=== PATIENT | female | born 1960 | race Caucasian/White ===

== ENCOUNTER 2016-08-29 16:26 | Emergency (ER) | payer OTHER ==
[~2016-08-29] VITALS: Ht 157.5 cm; Wt 66.7 kg
[~2016-08-29 16:26] MED LIST: ALLOPURINOL; ALLOPURINOL300 MG PO; BUPROBAN150 MG PO; BUPROPION; COMPAZINE5 MG PO; FLOMAX0.4 MG PO; HYDROCODON-ACE1 EAC7 PO; IRON325 MG PO; KEFLEX500 MG PO; NORVASC5 MG PO; PERCOCET 5/31 TABLET PO; ZOFRAN4 MG PO; ZOLPIDEM TARTRAT5 MG PO; ZOLPIDEM TARTRATE
[2016-08-29 17:35] LABS: HEMATOCRIT 40.4 % (36.0-46.0); MCH 32.1 PG (29.0-34.0); MCHC 34.7 G/DL (30.0-36.0); MCV 92.7 FL (83-99); MEAN PLAT.VOLUME 10.3 uM^3 (9.5-12.4); PLATELET COUNT 244 K/uL (156-360); RBC DIS.WIDTH-CV 12.8 % (11.8-14.6); RBC DIS.WIDTH-SD 41.9 % (39-53); RED BLOOD COUNT 4.36 M/uL (3.80-5.20); WHITE BLOOD COUNT 7.2 K/uL (4.1-10.2)
[2016-08-29 17:47] LABS: CHLORIDE 107 mEq/L (99-109); POTASSIUM 3.7 mEq/L (3.7-5.4); SODIUM 141 mEq/L (136-147)
[2016-08-29 17:49] LABS: GLUCOSE 91 mg/dL (70-99)
[2016-08-29 17:50] LABS: ANION GAP 11 MEQ/L (2-14)
[2016-08-29 17:52] LABS: GFR ESTIMATE (CALCULATED) > 59 mL/min/
[2016-08-29 17:53] LABS: UREA NITROGEN (BUN) 11 mg/dL (9-23)
[2016-08-29 19:38] LABS: D-DIMER ELISA 0.38 mg/L FEU (< 0.57)
[2016-08-29] MEDS ORDERED: ATARAX,VISTARIL50 MG PO (20:15)
[2016-08-29 20:51] VITALS: BP 139/46
== END 2016-08-29 20:51 | disposition home or self-care (01) ==
LOC: EME 16:26
PROVIDERS: Physician Assistant Medical
DX: R06.02 Shortness of breath (principal); Z87.442 Personal history of urinary calculi
CPT/HCPCS: 71020; 80048; 85027; 85379; 93005; 99281; 99284; Q0177